=== PATIENT | female | born 1955 | race Hispanic/Latino ===

== ENCOUNTER 2018-04-04 18:10 | Inpatient (IN) | payer OTHER ==
[~2018-04-04] VITALS: Ht 160 cm; Wt 100.4 kg
[2018-04-04] MEDS ORDERED: HYDRALAZINE HCL 25 MG TABLET ONE (18:40)
[2018-04-04 19:08] LABS: EOSINOPHILS % (AUTO) 3.2 % (0.0-8.0); HEMATOCRIT 36.6 % (36-48); LYMPHOCYTES % (AUTO) 31.2 % (21.0-51.0); MEAN CORPUSCULAR HEMOGLOBIN 28.4 pg (27.0-33.0); MEAN CORPUSCULAR HGB CONC 33.4 g/dL (32.0-36.0); MONOCYTES % (AUTO) 9.5 % (3.0-13.0); NEUTROPHILS % (AUTO) 55.1 % (40.0-77.0); PLATELET COUNT (AUTO) 191 K/uL (130-400); RED BLOOD CELL COUNT(AUTO) 4.31 MIL/uL (4.00-5.50); RED CELL DISTRIBUTION WIDTH 14.2 % (11.0-15.5); WHITE BLOOD COUNT (AUTO) 4.9 K/uL (4.8-10.8)
[2018-04-04 19:15] LABS: CREATININE 0.9 mg/dL (0.5-1.5); POTASSIUM 3.9 mmol/L (3.5-5.1)
[2018-04-04 19:20] LABS: ALBUMIN 3.6 g/dL (3.5-5.0); BILIRUBIN,TOTAL 0.2 mg/dL (0.2-1.0); TOTAL PROTEIN, SERUM 7.3 g/dL (6.0-8.3)
[2018-04-04] MEDS ORDERED: GUAIFENESIN-DM 200/20 MG 10 ML PO PRN (19:45)
[2018-04-04] MEDS ORDERED: CLONIDINE HCL 0.1 MG TABLET PO PRN (19:45)
[2018-04-04] MEDS ORDERED: SODIUM CHLORIDE 0.9% 10 ML VIAL IVP PRN (19:45)
[2018-04-04] MEDS ORDERED: GUAIFENESIN SUGAR-FREE 100 MG/5 ML UDCUP PO PRN (19:45)
[2018-04-04] MEDS ORDERED: POTASSIUM CHLORIDE 10% ELIXIR 20 MEQ/15 ML UDCUP PO PRN (19:45)
[2018-04-04] MEDS ORDERED: POTASSIUM CHLORIDE 20MEQ/100ML 100 ML IV PRN (19:45)
[2018-04-04] MEDS ORDERED: MAG HYDROX/AL HYDROX/SIMETH ES 30 ML SUSP UDCUP PO PRN (19:45)
[2018-04-04] MEDS ORDERED: LIDOCAINE HCL-MPF 1% 2ML VIAL IJ PRN (19:45)
[2018-04-04] MEDS ORDERED: NITROGLYCERIN 0.4 MG SL TAB SL PRN (19:45)
[2018-04-04] MEDS ORDERED: ZOLPIDEM TARTRATE 5 MG TAB PO PRN (19:45)
[2018-04-04] MEDS ORDERED: LACTULOSE 20 GM/30 ML UDCUP PO PRN (19:45)
[2018-04-04] MEDS ORDERED: ONDANSETRON HCL 4 MG/2 ML VIAL IVP PRN (19:45)
[2018-04-04] MEDS ORDERED: MORPHINE SULFATE 4 MG/1ML SYG IVP PRN (19:45)
[2018-04-04] MEDS ORDERED: LABETALOL HCL 5 MG/ML 20ML VIAL IV PRN (19:45)
[2018-04-04] MEDS ORDERED: DiphenhydrAMINE HCL 50 MG/ML VIAL IVP PRN (19:45)
[2018-04-04] MEDS ORDERED: IPRATROPIUM/ALBUTEROL SULFATE 3 ML SOLUTION IH PRN (19:45)
[2018-04-04] MEDS ORDERED: DIPHENHYDRAMINE HCL 25 MG CAPSULE PO PRN (19:45)
[2018-04-04] MEDS ORDERED: ACETAMINOPHEN 325 MG TAB PO PRN ×2 (19:45)
[2018-04-04] MEDS ORDERED: IOHEXOL-350 50ML VIAL IV ONE (20:02)
[2018-04-04 20:11] LABS: APPEARANCE,URINE Clear (CLEAR); BILIRUBIN,URINE Negative (NEGATIVE); COLOR,URINE Yellow (YELLOW); GLUCOSE, URINE (UA) Negative (NEGATIVE); KETONES,URINE Negative (NEGATIVE); LEUKOCYTE ESTERASE ,URINE Large (NEGATIVE); NITRATE,URINE Negative (NEGATIVE); OCCULT BLOOD,URINE Negative (NEGATIVE); PH,URINE 5.5 (5.0-8.0); PROTEIN,URINE Negative (NEGATIVE)
[2018-04-04 20:31] LABS: RBC,URINE 0-1 /HPF (0-1)
[2018-04-04 20:32] LABS: BACTERIA,URINE Rare /HPF (None Seen)
[2018-04-04 20:33] LABS: SQUAMOUS EPITHELIAL CELL,UR Rare /HPF (0-2); TRANSITIONAL EPI CELLS,URINE Rare /HPF (None Seen)
[2018-04-04] MEDS: HYDRALAZINE HCL 25 MG TABLET PO SCH (21:00)
[2018-04-04] MEDS: FAMOTIDINE 20MG TAB 20 MG TAB PO SCH (21:00)
[2018-04-05] MEDS ORDERED: CLONIDINE HCL 0.1 MG TABLET ONE (01:51)
[2018-04-05] MEDS ORDERED: FAMOTIDINE 20MG TAB 20 MG TAB ONE (01:52)
[2018-04-05] MEDS ORDERED: ACETAMINOPHEN 325 MG TAB ONE (01:52)
[2018-04-05 02:33] VITALS: BP 161/72
[2018-04-05] MEDS ORDERED: OMEP20CA10 PO (03:02)
[2018-04-05] MEDS ORDERED: AEC81 PO (03:02)
[2018-04-05] MEDS ORDERED: RANI150T7 PO (03:02)
[2018-04-05] MEDS ORDERED: IBUP-2077 PO (03:02)
[2018-04-05] MEDS ORDERED: LOSA100T58 PO (03:02)
[2018-04-05] MEDS ORDERED: CARV25TA PO (03:02)
[2018-04-05 03:29] VITALS: BP 146/67
[2018-04-05 07:40] VITALS: BP 146/54
[2018-04-05] MEDS ORDERED: DOCUSATE SODIUM 100 MG CAP PO PRN (09:15)
--- NOTE | 2018-04-05 09:30 | NUR ---
MD ROUNDS PATIENT AWAKE AND ALERT. VOICES ALL NEEDS. NO COMPLAINTS OF PAIN VOICED. RESP EVEN AND UNLABORED. NO SOB NOTED. ON ROOM AIR. VITALS STABLE. AFEBRILE. UP AD KATIE. VISITED WITH PATIENT. POC DISCUSSED. NEW ORDERS RECEIVED AND CARRIED OUT. NO QUESTIONS OR CONCERNS VOICED AT THIS TIME. SPOUSE AT BEDSIDE. CALL LIGHT WITHIN REACH. WILL CONTINUE TO BE OBSERVED. Addendum: 04/05/18 at 1958 by ILIR GUTIERREZ RN RN Amended: Links added.
[2018-04-05] MEDS ORDERED: IBUPROFEN 800 MG TAB PO PRN (09:45)
[2018-04-05] MEDS: FUROSEMIDE 10 MG/ML 2ML VIAL IV SCH ×2 (10:26→20:44)
[2018-04-05] MEDS: LOSARTAN 100 MG TABLET PO SCH (10:27)
[2018-04-05] MEDS: ASPIRIN 81 MG EC TAB PO SCH (10:27)
[2018-04-05] MEDS: HYDRALAZINE HCL 25 MG TABLET PO SCH ×3 (10:27→21:00)
[2018-04-05] MEDS: CARVEDILOL 25 MG TABLET PO SCH ×2 (10:28→20:45)
[2018-04-05] MEDS: FAMOTIDINE 20MG TAB 20 MG TAB PO SCH ×2 (10:28→20:46)
[2018-04-05] MEDS: CEFTRIAXONE SODIUM 1 GM IVP SCH (10:28)
--- NOTE | 2018-04-05 10:30 | NUR ---
INITIAL DOSE OF ROCEPHIN GIVEN TO PATIENT, NO ADVERSE REACTIONS NOTED. Addendum: 04/05/18 at 2010 by ILIR GUTIERREZ RN RN Amended: Links added.
[2018-04-05 11:18] VITALS: BP 144/55
--- NOTE | 2018-04-05 12:24 | NUR ---
DCP CM met with pt discussed dc plans. Pt is independent, lives at home with spouse. Denies any equipments/services. Pt feels safe to go back home, still drives and works, spouse able to assist w/transportation and needs as necessary. DC plan to home once stable. CM to cont to follow up. Addendum: 04/05/18 at 1226 by WILLA POTTER LVN CM Amended: Links added.
[2018-04-05 16:23] VITALS: BP 172/71
[2018-04-05 19:49] VITALS: BP 129/70
[2018-04-05] MEDS: RANITIDINE HCL 15 MG/1 ML PO SCH (20:46)
[2018-04-06] VITALS: BP 136/67
[2018-04-06 03:39] VITALS: BP 130/57
[2018-04-06 04:35] LABS: HEMATOCRIT 38.4 % (36-48); MEAN CORPUSCULAR HEMOGLOBIN 28.2 pg (27.0-33.0); MEAN CORPUSCULAR HGB CONC 33.2 g/dL (32.0-36.0); MEAN CORPUSCULAR VOLUME 84.9 fL (79-99); PLATELET COUNT (AUTO) 191 K/uL (130-400); RED BLOOD CELL COUNT(AUTO) 4.52 MIL/uL (4.00-5.50); WHITE BLOOD COUNT (AUTO) 4.8 K/uL (4.8-10.8)
[2018-04-06 04:51] LABS: CREATININE 0.8 mg/dL (0.5-1.5); POTASSIUM 3.5 mmol/L (3.5-5.1)
[2018-04-06] MEDS: POTASSIUM CHLORIDE 20 MEQ ERTAB PO PRN ×2 (06:39→16:12)
[2018-04-06 08:00] VITALS: BP 141/63
[2018-04-06] MEDS: CEFTRIAXONE SODIUM 1 GM IVP SCH (09:20)
[2018-04-06] MEDS: FUROSEMIDE 10 MG/ML 2ML VIAL IV SCH ×2 (09:20→20:02)
[2018-04-06] MEDS: LOSARTAN 100 MG TABLET PO SCH (09:21)
[2018-04-06] MEDS: HYDRALAZINE HCL 25 MG TABLET PO SCH ×3 (09:21→20:02)
[2018-04-06] MEDS: CARVEDILOL 25 MG TABLET PO SCH ×2 (09:21→20:02)
[2018-04-06] MEDS: ASPIRIN 81 MG EC TAB PO SCH (09:21)
[2018-04-06] MEDS: FAMOTIDINE 20MG TAB 20 MG TAB PO SCH ×2 (09:22→20:01)
[2018-04-06] MEDS: RANITIDINE HCL 15 MG/1 ML PO SCH ×2 (09:22→20:02)
[2018-04-06 12:00] VITALS: BP 142/66
[2018-04-06 16:00] VITALS: BP 128/53
[2018-04-06 19:55] VITALS: BP 126/75
[2018-04-07] VITALS: BP 107/50
[2018-04-07 04:00] VITALS: BP 132/62
[2018-04-07 08:00] VITALS: BP 133/58
[2018-04-07] MEDS: CEFTRIAXONE SODIUM 1 GM IVP SCH (08:57)
[2018-04-07 08:58] VITALS: BP 133/58
[2018-04-07] MEDS: ASPIRIN 81 MG EC TAB PO SCH (08:58)
[2018-04-07] MEDS: CARVEDILOL 25 MG TABLET PO SCH (08:58)
[2018-04-07] MEDS: FUROSEMIDE 10 MG/ML 2ML VIAL IV SCH (08:58)
[2018-04-07] MEDS: FAMOTIDINE 20MG TAB 20 MG TAB PO SCH (08:59)
[2018-04-07] MEDS: HYDRALAZINE HCL 25 MG TABLET PO SCH (08:59)
[2018-04-07] MEDS: LOSARTAN 100 MG TABLET PO SCH (08:59)
--- NOTE | 2018-04-07 13:10 | NUR ---
DISCHARGE PATIENT GIVEN DISCHARGE INSTRUCTIONS VIA TEACH BACK. 20G PIV TO RAC DISCONTINUED, TIP INTACT. RX GIVEN FOR AUGMENTIN 875/125MG 1 TAB PO BID X 7 DAYS AND HYDRALAZINE. PATIENT TO F/U WITH DR. HUMPHREY ON MONDAY. PATIENT STABLE AT THIS TIME. SPOUSE AT BEDSIDE TO TRANSPORT PATIENT HOME.
== END 2018-04-07 11:42 | disposition home or self-care (01) | DRG 305 ==
LOC: EDH 18:10 → EDHIP 19:04 → 4CH 04-05 01:33
PROVIDERS: ADMIT Family Medicine; ATTEND Family Medicine
DX: I16.0 Hypertensive urgency (principal); N39.0 Urinary tract infection, site not specified; I10 Essential (primary) hypertension; R51 Headache
CPT/HCPCS: 36415; 70470; 80048; 80053; 81001; 85025; 85027; 87088; A4218; G0378; J0696; J1940; Q9967

== ENCOUNTER 2023-10-05 05:51 | Day surgery (SDC) | payer MEDICARE ==
[2023-10-05] VITALS (11 sets, daily range): BP systolic 112–149; BP diastolic 51–77; PULSE 68–77; RESP 14–17; TEMP 97.1–98
[~2023-10-05] VITALS: Ht 157.5 cm; Wt 69.9 kg
[~2023-10-05 05:51] MED LIST: AEC81 PO; CARV25TA PO; FERS325 PO; IBUP-2077 PO; LEVO125C4 PO; LOSA100T59 PO; MAGN400T53 PO; METO50TA18 PO; OMEP20CA12 PO; OMEP40CA21 PO; RANI150T7 PO; SACU1TAB PO
[2023-10-05] MEDS: 0.9%NACL 1000ML 1,000 ML IV ONE (06:22)
[2023-10-05] MEDS ORDERED: ATOR20TA65 PO (06:25)
[2023-10-05] MEDS ORDERED: proPOFol 10 MG/ML 20ML VIAL IV ONE (07:16)
[2023-10-05] MEDS ORDERED: LIDOCAINE HCL 1% 20 ML VIAL ONE (07:16)
== END 2023-10-05 08:40 | disposition home or self-care (01) ==
LOC: ENDO 05:51
PROVIDERS: ATTEND Internal Medicine Gastroenterology
DX: R13.10 Dysphagia, unspecified (principal); K29.50 Unspecified chronic gastritis without bleeding; K22.2 Esophageal obstruction; K44.9 Diaphragmatic hernia without obstruction or gangrene; K31.89 Other diseases of stomach and duodenum; D50.9 Iron deficiency anemia, unspecified; K55.1 Chronic vascular disorders of intestine; K57.30 Diverticulosis of large intestine without perforation or abscess without bleeding; K29.30 Chronic superficial gastritis without bleeding; I11.0 Hypertensive heart disease with heart failure; I50.9 Heart failure, unspecified; I25.10 Atherosclerotic heart disease of native coronary artery without angina pectoris; E66.9 Obesity, unspecified; E78.5 Hyperlipidemia, unspecified; E03.9 Hypothyroidism, unspecified; Z85.42 Personal history of malignant neoplasm of other parts of uterus; Z90.710 Acquired absence of both cervix and uterus; Z98.42 Cataract extraction status, left eye; Z98.41 Cataract extraction status, right eye; Z79.82 Long term (current) use of aspirin; Z79.899 Other long term (current) drug therapy
CPT/HCPCS: 43249; 43239; J7030 ×2; J2704; C1726; A4620; A7002; J3490